=== PATIENT | female | born 1985 | race Caucasian/White ===

== ENCOUNTER 2018-06-21 09:59 | Observation (INO) | payer BC, OTHER ==
[~2018-06-21 09:59] MED LIST: SEVOFLURANE 15 MIN
[2018-06-21 10:50] LABS: ADD MAN DIFF? NO
[2018-06-21 10:53] LABS: BASOPHILS % 0.3 % (0.0-2.0); EOSINOPHILS # 0.1 10^3/ul (0.0-0.5); EOSINOPHILS % 1.4 % (0.0-7.0); HEMATOCRIT 39.3 % (37.0-47.0); HEMOGLOBIN 13.3 g/dl (12.0-16.0); LYMPHOCYTES % 34.5 % (15.0-51.0); MEAN CORPUSCULAR HEMOGLOBIN 27.9 pg (29.0-33.0); MEAN CORPUSCULAR HGB CONC 33.8 g/dl (32.0-37.0); MEAN CORPUSCULAR VOLUME 82.4 fl (82.0-101.0); MEAN PLATELET VOLUME 11.2 fl (7.4-10.4); MONOCYTE # 0.5 10^3/ul (0.3-0.9); MONOCYTES % 7.9 % (0.0-11.0); NEUTROPHIL # 3.3 10^3/ul (1.6-7.5); NEUTROPHILS % 55.6 % (39.0-77.0); PLATELET COUNT 208 10^3/UL (140-415); RED BLOOD COUNT 4.77 10^6/ul (4.20-5.40); RED CELL DISTRIBUTION WIDTH 13.2 % (11.5-14.5)
[2018-06-21 10:53] LABS: WHITE BLOOD COUNT 5.9 10^3/ul (4.8-10.8)
[2018-06-21 11:22] LABS: INR 0.93; PARTIAL THROMBOPLASTIN TIME 28.2 Sec (23.0-35.0); PROTIME 12.6 Sec (11.9-14.9)
[2018-06-21] MEDS ORDERED: CEFAZOLIN SODIUM 2GM/D5W 50 X1 IVPB (11:30)
[2018-06-21 13:14] LABS: ADD UMIC NO; UR ASCORBIC ACID NEGATIVE (NEGATIVE); UR BILIRUBIN (Dip) NEGATIVE (NEGATIVE); UR BLOOD (Dip) NEGATIVE (NEGATIVE); UR CLARITY CLEAR (CLEAR); UR COLOR STRAW (YELLOW); UR GLUCOSE (Dip) NEGATIVE (NEGATIVE); UR KETONES (Dip) NEGATIVE (NEGATIVE); UR LEUKOCYTE ESTERASE (Dip) NEGATIVE Leu/ul (NEGATIVE); UR NITRITE (Dip) NEGATIVE (NEGATIVE); UR TOTAL PROTEIN (Dip) NEGATIVE (NEGATIVE); UR UROBILINOGEN (Dip) NEGATIVE (NEGATIVE)
[2018-06-21] MEDS ORDERED: NEOSTIGMINE 3 MG/3 ML SYRINGE ×2 (14:12→14:45)
[2018-06-21] MEDS ORDERED: LIDOCAINE 2% (SDV) 5 ML INJ (14:12)
[2018-06-21] MEDS ORDERED: SUCCINYLCHOLINE CHLORIDE 100 MG/5 ML SYG IV (14:12)
[2018-06-21] MEDS ORDERED: ROCURONIUM 50 MG INJ (14:12)
[2018-06-21] MEDS ORDERED: PROPOFOL 20 ML (14:12)
[2018-06-21] MEDS ORDERED: GLYCOPYRROLATE 0.4 MG INJ ×2 (14:12→14:45)
[2018-06-21] MEDS ORDERED: MEPERIDINE 100 MG INJ (14:13)
[2018-06-21] MEDS ORDERED: CEFAZOLIN 1 GM INJ ×2 (14:45)
[2018-06-21] MEDS ORDERED: METOCLOPRAMIDE 10 MG INJ (14:45)
[2018-06-21] MEDS ORDERED: ONDANSETRON 4 MG INJ (14:45)
[2018-06-21] MEDS ORDERED: DIPHENHYDRAMINE 50 MG INJ IV (15:00)
[2018-06-21] MEDS ORDERED: OXYCODONE/ACETAMINOPHEN (5/325) TAB PO ×2 (15:00)
[2018-06-21] MEDS ORDERED: FENTAnyl 50 MCG/ML VIAL IV ×3 (15:00)
[2018-06-21] MEDS ORDERED: MIDAZOLAM 1 MG/ML 2 ML INJ IV (15:00)
[2018-06-21] MEDS ORDERED: LABETALOL HCL 20MG INJ IV (15:00)
[2018-06-21] MEDS ORDERED: EPHEDrine SULFATE 50 MG/5 ML SYG IV (15:00)
[2018-06-21] MEDS ORDERED: MEPERIDINE 25 MG INJ IV (15:00)
[2018-06-21] MEDS ORDERED: hydrALAzine 20 MG INJ IV (15:00)
[2018-06-21] MEDS ORDERED: HYDROmorphONE 1 MG/5 ML IV SYRINGE IV ×2 (15:00)
[2018-06-21] MEDS: BUPIVACAINE 0.5%/EPI (SDV) 30 ML INJ (15:55)
[2018-06-21] MEDS ORDERED: HYDROCODONE/APAP (5/325) TAB PO (16:30)
[2018-06-21] MEDS ORDERED: DIPHENHYDRAMINE 50 MG CAP PO (16:30)
[2018-06-21] MEDS ORDERED: BISACODYL (EC) 5 MG TAB PO (16:30)
[2018-06-21] MEDS ORDERED: ZOLPIDEM 5 MG TAB PO (16:30)
[2018-06-21] MEDS: ONDANSETRON 4 MG INJ IV (16:36)
[2018-06-21] MEDS: HYDROmorphONE 1 MG/5 ML IV SYRINGE IV (16:38)
[2018-06-21] MEDS: KETOROLAC 30 MG INJ IV ×2 (16:41→21:36)
[2018-06-21] MEDS: METOCLOPRAMIDE 10 MG INJ IV (17:20)
[2018-06-21] MEDS: LACTATED RINGER'S 1,000 ML IV ×2 (17:56→23:38)
[2018-06-21] MEDS: METOCLOPRAMIDE 10 MG TAB PO ×2 (18:00→23:01)
[2018-06-21] MEDS: ONDANSETRON INJ 6 MG in DEXTROSE 5% 50 ML IVPB (19:56)
[2018-06-21] MEDS: CEFAZOLIN 1 GM/50 ML (PMX) 50 ML IVPB (21:37)
[2018-06-22] MEDS: LACTATED RINGER'S 1,000 ML IV (01:47)
[2018-06-22] MEDS: HYDROCODONE/APAP (5/325) TAB PO ×2 (01:52→07:56)
[2018-06-22] MEDS: KETOROLAC 30 MG INJ IV ×2 (04:07→10:28)
[2018-06-22] MEDS: METOCLOPRAMIDE 10 MG TAB PO ×2 (05:13→12:14)
[2018-06-22] MEDS: CEFAZOLIN 1 GM/50 ML (PMX) 50 ML IVPB ×2 (05:13→14:00)
[2018-06-22 05:28] LABS: WHITE BLOOD COUNT 8.6 10^3/ul (4.8-10.8)
[2018-06-22 05:28] LABS: ADD MAN DIFF? NO; BASOPHILS % 0.1 % (0.0-2.0); EOSINOPHILS % 0.5 % (0.0-7.0); HEMATOCRIT 30.8 % (37.0-47.0); HEMOGLOBIN 10.5 g/dl (12.0-16.0); LYMPHOCYTES # 1.9 10^3/ul (0.8-2.9); LYMPHOCYTES % 22.4 % (15.0-51.0); MEAN CORPUSCULAR HEMOGLOBIN 28.5 pg (29.0-33.0); MEAN CORPUSCULAR HGB CONC 34.1 g/dl (32.0-37.0); MEAN CORPUSCULAR VOLUME 83.5 fl (82.0-101.0); MEAN PLATELET VOLUME 11.3 fl (7.4-10.4); MONOCYTE # 0.8 10^3/ul (0.3-0.9); MONOCYTES % 8.8 % (0.0-11.0); NEUTROPHIL # 5.8 10^3/ul (1.6-7.5); PLATELET COUNT 175 10^3/UL (140-415); RED BLOOD COUNT 3.69 10^6/ul (4.20-5.40); RED CELL DISTRIBUTION WIDTH 13.4 % (11.5-14.5)
[2018-06-22 06:03] LABS: ANION GAP 8 (5-13); BLOOD UREA NITROGEN 11 mg/dl (7-20); CARBON DIOXIDE 27 mmol/L (21-31); CHLORIDE 103 mmol/L (97-110); CREATININE 0.51 mg/dl (0.44-1.00); SODIUM 138 mmol/L (135-144)
== END 2018-06-22 15:03 | disposition home or self-care (01) ==
LOC: SDS 09:59 → MS1 16:10
PROVIDERS: Obstetrics & Gynecology
DX: O00.101 Right tubal pregnancy without intrauterine pregnancy (principal); D25.9 Leiomyoma of uterus, unspecified; Z87.891 Personal history of nicotine dependence
CPT/HCPCS: 59151; 71045; 80051; 81003; 82565; 84520; 85025; 85610; 85730; 88305; 93005